=== PATIENT | female | born 1955 | race Caucasian/White ===

== ENCOUNTER 2019-01-22 23:59 | Observation (INO) ==
[2019-01-23] MEDS ORDERED: SODIUM CHLORIDE 0.9% 1000ML 1,000 ML IV ONE (00:25)
[2019-01-23] MEDS ORDERED: METOPROLOL TARTRATE 1 MG/ML VIAL IV STA ×2 (00:25→02:12)
[2019-01-23 00:44] LABS: Basophils # (auto) 0.06 K/uL (0-0.2); Eosinophils # (auto) 0.54 K/uL (0-0.5); Eosinophils % (auto) 8.8 %; Hematocrit (blood only) 39.3 % (37-47); Hemoglobin 13.6 g/dL (12.0-16.0); Immature Granulocytes # (auto) 0.01 K/uL (0.00-0.02); Immature Granulocytes % (auto) 0.2 %; Lymphocytes # (auto) 2.91 K/uL (1.2-3.4); Lymphocytes % (auto) 47.4 %; Mean Corpuscular Hgb Conc 34.6 g/dL (32-36); Mean Corpuscular Volume 90.1 fL (80-100); Mean Platelet Volume 9.9 fL (7.4-10.4); Monocytes # (auto) 0.59 K/uL (0.11-0.59); Monocytes % (auto) 9.6 %; Neutrophils # (auto) 2.03 K/uL (1.4-6.5); Platelet Count 318 K/uL (130-400); RDW Coefficient of Variation 12.4 % (11.5-14.5); Red Blood Count 4.36 M/uL (4.2-5.4); White Blood Count 6.14 K/uL (4.8-10.8)
[2019-01-23 00:56] LABS: Partial Thromboplastin Ratio 1.1; Partial Thromboplastin Time 29.1 Seconds (21.0-31.0); Prothrombin Time 10.3 Seconds (9.0-12.0)
[2019-01-23 01:03] LABS: Alanine Aminotransferase 24 U/L (12-78); Aspartate Aminotransferase 18 U/L (15-37); Bilirubin Direct < 0.1 mg/dl (0-0.2); Blood Urea Nitrogen 15 mg/dl (7-18); Calcium 8.9 mg/dl (8.5-10.1); Carbon Dioxide 25 mmol/L (21-32); Chloride 108 mmol/L (98-107); Creatinine Clr Calc Pharmacy 82.6 ml/min; Est GFR (African American) 106.1; Est GFR (Non-African American) 91.6; Glucose 98 mg/dl (70-99); Magnesium 2.4 mg/dl (1.8-2.4); Potassium 3.5 mmol/L (3.5-5.1); Sodium 140 mmol/L (136-145)
[2019-01-23 01:14] LABS: Alkaline Phosphatase 83 U/L (45-117); Bilirubin,Total 0.2 mg/dl (0.2-1); Total Protein 8.3 gm/dl (6.4-8.2); Troponin I < 0.015 ng/ml (0-0.045)
[2019-01-23] MEDS ORDERED: SODIUM CHLORIDE 0.9% 1000ML 1,000 ML IV SCH (02:15)
[2019-01-23] MEDS ORDERED: POTASSIUM CHLORIDE 20 MEQ TABCR PO STA (03:03)
--- NOTE | 2019-01-23 03:04 | History & Physical Report ---
Date of Service January 23, 2019 Assessment & Plan (1) Paroxysmal atrial fibrillation with RVR: Paroxysmal A-fib with RVR/Palpitations-- The patient will be admitted to telemetry for serial cardiac enzymes, serial EKG's, cardiac rhythm monitoring and a 2-D echocardiogram with Dopplers. She has already stated that she does not want to be on medications. I discussed with her that she would likely be recommended to start a baby aspirin 81 mg daily for stroke prophylaxis, but she preferred not to at this time. She has received 2 doses of Lopressor 5 mg IV while in the ED. Give Klor-Con 40 mEq p.o. x1 now, for a potassium level of 3.5. We will have Lopressor 5 mg IV every 4 hours as needed heart rate greater than [address] Fay, who was contacted by Dr. Dye from the ED. Present on Admission?: Yes (2) Palpitations: see above. Present on Admission?: Yes History of Present Illness Chief Complaint: The patient presents to the ED with complaint of acute onset of irregular fast heart beat a few hours prior to arrival Primary Care Provider: Cody Sandhu MD The patient is a 63 yo female who initially noted an irregular heart beat of about 2 minutes duration 3 months ago. Since that time, she has occasionally noted a flutterng sensation in her neck, but has always checked her pulse and found it to be regular. Tonite, she noted the acute onset of palpitations, felt the pulsation in her neck, and felt her pulse to be irregular and fast, and presented to the ED for assessment. In the ED, she was found to be in A-fib with RVR, was given lopressor 5mg IV x 2 with improved rate control, and was referred for admission. Allergies Allergy/AdvReac Type Severity Reaction Status Date / Time No Known Allergies Allergy Verified 01/23/19 02:12 Home Medications Home Medications Medication Instructions Recorded Confirmed Type multivitamin tablet 1 tab PO DAILY 12/26/18 01/23/19 History Past Med/Surg History Medical History Aortic dissection (Chronic) Surgical History History of neck surgery (Resolved) Social History marital status: Feels Safe at Home: Yes Smoking Status: Never smoker Hx Alcohol Use: Yes Hx Substance Use: No Review of Systems Review of Systems: The patient denies chest pain, shortness of breath, dyspnea on exertion, cough, lower extremity swelling, sore throat, fevers, chills, sweats, weight change, fatigue, nausea, vomiting, diarrhea , constipation, abdominal pain, pelvic pain, blood in urine or stool, dysuria, urinary frequency or urgency, lightheadedness, dizziness, headache, memory loss, loss of consciousness, rash, abnormal bruising or bleeding, imbalance, focal or generalized weakness, numbness or tingling in arms or legs, generalized arthralgias or myalgias, back or neck pain, or night sweats. The review of systems is otherwise negative other than for that already noted above, and at least 10 systems have been reviewed. Physical Exam Physical Exam: The patient is awake, alert and oriented 3, well developed and well nourished, normocephalic and atraumatic, lying in bed and in no acute distress. HEENT--PERRL, EOMI, mucous membranes and oropharynx dry. Neck--supple. No JVD. No bruits. Thyroid normal, trachea midline, no adenopathy. Heart--irregularly irregular, rate controlled. No murmurs, rubs or gallops. Lungs--clear bilaterally, no respiratory distress, no accessory muscle use. Abdomen--normal bowel sounds and soft. Nontender. Nondistended, no hernias or masses, no organomegaly. Extremities--no cyanosis or clubbing. No edema. There are good distal pulses b/l. Dermatologic--normal skin turgor, normal color, no abnormal lymph nodes, no rash. Neurologic--cranial nerves II through XII grossly intact. Rheumatologic--normal range of motion. Psychiatric--normal affect. Results & Data Vital Signs (Past 12 Hours) Vital Signs Temp Pulse Pulse Resp BP BP Pulse Ox 01/23/19 02:17 95 H 128/96 01/23/19 01:47 87 18 127/94 96 01/23/19 00:39 116 H 20 154/104 H 95 01/23/19 00:38 107 H 154/104 H 01/23/19 00:17 122 H 30 H 158/102 H 01/23/19 00:03 97.5 F L 120 H 20 185/89 H 97 Laboratory Results Laboratory Results WBC 6.14 K/uL (4.8-10.8) 01/23/19 00: RBC 4.36 M/uL (4.2-5.4) 01/23/19 00: Hgb 13.6 g/dL (12.0-16.0) 01/23/19 00: Hct 39.3 % (37-47) 01/23/19 00: MCV 90.1 fL (80-100) 01/23/19: MCH 31.2 pg (25-34) 01/23/19: MCHC 34.6 g/dL (32-36) 01/23/19 00: RDW Std Deviation 41.0 fL (36.4-46.3) 01/23/19 00: RDW Coeff of Chaparro 12.4 % (11.5-14.5) 01/23/19 00: Plt Count 318 K/uL (130-400) 01/23/19 00: MPV 9.9 fL (7.4-10.4) 01/23/19 00: Immature Gran % (Auto) 0.2 % 01/23/19 00: Neut % (Auto) 33.0 % 01/23/19 00: Lymph % (Auto) 47.4 % 01/23/19 00: Wells % (Auto) 9.6 % 01/23/19 00: Eos % (Auto) 8.8 % 01/23/19 00: Baso % (Auto) 1.0 % 01/23/19 00:28 Immature Gran # (Auto) 0.01 K/uL (0.00-0.02) 01/23/19 00:28 Neut # (Auto) 2.03 K/uL (1.4-6.5) 01/23/19 00: Lymph # (Auto) 2.91 K/uL (1.2-3.4) 01/23/19 00: Wells # (Auto) 0.59 K/uL (0.11-0.59) 01/23/19 00: Eos # (Auto) 0.54 K/uL (0-0.5) H 01/23/19 00:28 Baso # (Auto) 0.06 K/uL (0-0.2) 01/23/19: PT 10.3 Seconds (9.0-12.0) 01/23/19: INR 1.0 (0.9-1.1) 01/23/19: APTT 29.1 Seconds (21.0-31.0) 01/23/19 PTT Ratio 1.1 01/23/19: Sodium 140 mmol/L (136-145) 01/23/19: Potassium 3.5 mmol/L (3.5-5.1) 01/23/19 Chloride 108 mmol/L (98-107) H 01/23/19: Carbon Dioxide 25 mmol/L (21-32) 01/23/19: Anion Gap 7.0 (3-11) 01/23/19: BUN 15 mg/dl (7-18) 01/23/19: Creatinine 0.70 mg/dl (0.6-1.2) 01/23/19: Est Cr Clr Drug Dosing 82.6 ml/min 01/23/19: Est GFR ( Amer) 106.1 01/23/19: Est GFR (Non-Af Amer) 91.6 01/23/19: BUN/Creatinine Ratio 22.0 (10-20) H 01/23/19: Glucose 98 mg/dl (70-99) 01/23/19 Calcium 8.9 mg/dl (8.5-10.1) 01/23/19: Magnesium 2.4 mg/dl (1.8-2.4) 01/23/19 Total Bilirubin 0.2 mg/dl (0.2-1) 01/23/19 Direct Bilirubin < 0.1 mg/dl (0-0.2) 01/23/19: AST 18 U/L (15-37) 01/23/19: ALT 24 U/L (12-78) 01/23/19: Alkaline Phosphatase 83 U/L (45-117) 01/23/19 00:28 Troponin I < 0.015 ng/ml (0-0.045) 01/23/19 00:28 Total Protein 8.3 gm/dl (6.4-8.2) H 01/23/19 00:28 Albumin 4.0 gm/dl (3.4-5.0) 01/23/19 00:28 TSH 2.220 uIu/ml (0.300-4.500) 01/23/19 00:28 Ethyl Alcohol mg/dL 38.9 mg/dl (0-3) H 01/23/19 00:28 Code Status & VTE Plan Code Status full code VTE Prophylaxis Plan VTE Prophylaxis will be ordered: Yes PG Care Time/CCT Total # of Minutes Spent Total Time Spent with Patient: Total time spent is greater than 50% in coordination of care (as documented) at patient's floor/unit and/or counseling patient:
[2019-01-23] MEDS ORDERED: METOPROLOL TARTRATE 1 MG/ML VIAL IV PRN (03:58)
[2019-01-23] MEDS ORDERED: ACETAMINOPHEN 325 MG TAB PO PRN (04:11)
[2019-01-23] MEDS ORDERED: MAGNESIUM HYDROXIDE SUSP 30 ML UDC PO PRN (04:11)
[2019-01-23] MEDS ORDERED: ACETAMINOPHEN 1000 MG/100 ML IV IV PRN (04:11)
[2019-01-23] MEDS ORDERED: ALUMINUM/MAGNESIUM SUSP 30 ML UDC PO PRN (04:11)
--- NOTE | 2019-01-23 06:25 | Emergency Department Note ---
Entered by Jamee Gibbs acting as a scribe for Kai Dye MD ED Provider Note Name: Celeste Brady Age: 63 F Arrives Via: personal vehicle Informant: patient, CC: Palpitations HPI: The patient is a 63 y./o female who presents to the emergency department for a constant irregular heart beat that began prior to arrival. The patient states that she was with a friend had a drink and when she went to leave she began having heart palpitations. She states that it feels like her heart is beating irregularly. The patient notes that she was in the hospital in [place] in October for abdominal pain that was found to be an aortic dissection for which she has follow up appointment for to monitor. The patient denies chest pain, syncope, lightheaded, headache, trouble breathing, nausea, vomiting, abdominal pain, and urinary burning. She notes she does not take any medication, has no allergies, and does not have a history of heart issues. No medications taken prior to arrival. Nothing makes better nor worse. Patient notes that over last month or so periodically noting some heart racing which resolves quickly on its own until tonight. ROS: See above HPI for pertinent positives & negatives. A total of 10 systems reviewed and were otherwise negative. Past Medical History: Aortic dissection Past Surgical History: History of neck surgery. Family History: Noncontributory. Social History: Never smoked Home Medications: No medication Allergies No allergies Physical: Vitals: BP 185/89, HR 120, RESP 20, TEMP 97.5, O2 97. Exam: GENERAL: Patient is mildly anxious appearing and in no acute distress. Smelled mildly of alcohol. EYES: No scleral icterus, unremarkable pupils. ENT: Mucous membranes moist, no nasal congestion. NECK: No masses appreciated, no meningismus, trachea is midline. RESPIRATORY: No dyspnea. Clear to auscultation and equal bilaterally. No wheeze, no rhonchi. CARDIOVASCULAR: Tachycardic rate and irregular rhythm. No murmurs, rubs, gallops appreciated. GASTROINTESTINAL: Abdomen soft, non-tender, no peritonitis. Bowel sounds positive. No masses appreciated. BACK: No midline tenderness, no CVA tenderness EXTREMITIES: Normal motion all extremities, no cyanosis, no edema. NEUROLOGIC: Alert and oriented, no acute motor or sensory deficits, no focal weakness, cranial nerves grossly intact. SKIN: No rash, no jaundice, no diaphoresis. ED Course: Prior Medical Record, Triage/Nursing Notes, Medications, Allergies reviewed by Me Vital Signs: reviewed and remarkable for Tachy/HTN Labs: Reviewed and remarkable for wnl Interventions: Saline lock, lopressor 5mg IV x 2, NSS bolus 1 L IV x 2 Imaging: X ray results are stated below per my interpretation: Chest: 1 view: No infiltrate, no effusion, normal cardiac border. EKG: Per My interpretation: Afib RVR no ischemia. Consults: 0209: I spoke with Dr. Kelly ROSE Cardiology, if continued symptoms it would be best to bring her in for further rate control and management. 0240: I spoke with Dr. Littlejohn hospitalist, he will evaluate the patient for further management. Reassessments/Times: 0015: The patient was evaluated in room C07. A complete history and physical exam was performed. 0105: I checked on the patient she is feeling better with her heart rate in the 90 but is still irregular. She notes she had a similar episode a few months ago which resolved on its own. 0205: I reevaluated the patient, her heart rate is irregular still but in the 80s. 0209: I spoke with Dr. Kelly ROSE Cardiology, if continued symptoms it would be best to bring her in for further rate control and management. Suggests holding an anti-colligation for the moment. 0240: I spoke with Dr. Littlejohn hospitalist, he will evaluate the patient for further management. Blood pressure: Elevated - Referred to Hospitalist Disposition: Hospitalization Differentials: premature contractions, electrolyte abnormality, cardiac dys rhythmia, thyroid dysfunction, pulmonary embolism, infection, gastrointestinal, amongst other pathologies. Medical Decision Makin yr old female with afib RVR on arrival as likely cause of her symptomatic Palpitations. HR improving with lopressor/fluids though still somewhat symptomatic. Reviewed with Cards and with persistent symptoms not unreasonable to bring in for further management/obs. Labs looking OK with mild hypoK. No evidence of PE and she has no pain thus I feel CTA not indicated for PE nor dissection eval. Impression: Paroxysmal Atiral Fibrillation with RVR The scribe's documentation has been prepared under my direction and personally reviewed by me in its entirety. I confirm that the note above accurately reflects all work, treatment, procedures, and medical decision making performed by me. Kai Dye MD Impression & Plan Paroxysmal atrial fibrillation with RVR Past Med/Surg History Medical History Aortic dissection (Chronic) Surgical History History of neck surgery (Resolved) Social History Beliefs That Will Affect Care: None marital status: Current Living Situation: Spouse Feels Safe at Home: Yes Smoking Status: Never smoker Hx Alcohol Use: Yes Alcohol type: wine Hx Substance Use: No Results & Data Vital Signs Vital Signs - 24 hr 01/23/19 00:03 01/23/19 00:17 01/23/19 00:35 Temperature 36.4 C L Temperature Source Oral Sepsis Recent Fever Within 48 Hours No Sepsis Action Taken by Nursing No Action Required Pulse Rate 120 H 122 H Pulse Rate [Finger] Respiratory Rate 20 30 H Respiratory Effort / Characteristics Non-Labored Spontaneous Respiratory Depth Normal Blood Pressure 185/89 H 158/102 H Blood Pressure [Left Arm] Blood Pressure Mean 121 120 Blood Pressure Mean [Left Arm] Blood Pressure Position Sitting Pulse Oximetry 97 Oxygen Delivery Method Room Air Room Air Fraction of Inspired Oxygen 96 01/23/19 00:38 01/23/19 00:39 01/23/19 01:47 Temperature Temperature Source Sepsis Recent Fever Within 48 Hours Sepsis Action Taken by Nursing Pulse Rate 107 H Pulse Rate [Finger] 116 H 87 Respiratory Rate 20 18 Respiratory Effort / Characteristics Respiratory Depth Blood Pressure 154/104 H Blood Pressure [Left Arm] 154/104 H 127/94 Blood Pressure Mean Blood Pressure Mean [Left Arm] 120 105 Blood Pressure Position Pulse Oximetry 95 96 Oxygen Delivery Method Room Air Room Air Fraction of Inspired Oxygen 01/23/19 02:17 Temperature Temperature Source Sepsis Recent Fever Within 48 Hours Sepsis Action Taken by Nursing Pulse Rate 95 H Pulse Rate [Finger] Respiratory Rate Respiratory Effort / Characteristics Respiratory Depth Blood Pressure 128/96 Blood Pressure [Left Arm] Blood Pressure Mean Blood Pressure Mean [Left Arm] Blood Pressure Position Pulse Oximetry Oxygen Delivery Method Fraction of Inspired Oxygen Home Medications Current Medication List: was personally reviewed by me Laboratory Data Attestation: I reviewed the patient's lab results. Result diagrams: 01/23/19 00:28 01/23/19 00:28 Lab Results 01/23/19 01/23/19 01/23/19 Range/Units 00:28 00:28 00:28 WBC 6.14 (4.8-10.8) K/uL RBC 4.36 (4.2-5.4) M/uL Hgb 13.6 (12.0-16.0) g/dL Hct 39.3 (37-47) % MCV 90.1 (80-100) fL MCH 31.2 (25-34) pg MCHC 34.6 (32-36) g/dL RDW Std Deviation 41.0 (36.4-46.3) fL RDW Coeff of Chaparro 12.4 (11.5-14.5) % Plt Count 318 (130-400) K/uL MPV 9.9 (7.4-10.4) fL Immature Gran % (Auto) 0.2 % Neut % (Auto) 33.0 % Lymph % (Auto) 47.4 % Winn % (Auto) 9.6 % Eos % (Auto) 8.8 % Baso % (Auto) 1.0 % Immature Gran # (Auto) 0.01 (0.00-0.02) K/uL Neut # (Auto) 2.03 (1.4-6.5) K/uL Lymph # (Auto) 2.91 (1.2-3.4) K/uL Winn # (Auto) 0.59 (0.11-0.59) K/uL Eos # (Auto) 0.54 H (0-0.5) K/uL Baso # (Auto) 0.06 (0-0.2) K/uL PT 10.3 (9.0-12.0) Seconds INR 1.0 (0.9-1.1) APTT 29.1 (21.0-31.0) Seconds PTT Ratio 1.1 Sodium 140 (136-145) mmol/L Potassium 3.5 (3.5-5.1) mmol/L Chloride 108 H (98-107) mmol/L Carbon Dioxide 25 (21-32) mmol/L Anion Gap 7.0 (3-11) BUN 15 (7-18) mg/dl Creatinine 0.70 (0.6-1.2) mg/dl Est Cr Clr Drug Dosing 82.6 ml/min Est GFR ( Amer) 106.1 Est GFR (Non-Af Amer) 91.6 BUN/Creatinine Ratio 22.0 H (10-20) Glucose 98 (70-99) mg/dl Calcium 8.9 (8.5-10.1) mg/dl Magnesium 2.4 (1.8-2.4) mg/dl Total Bilirubin 0.2 (0.2-1) mg/dl Direct Bilirubin < 0.1 (0-0.2) mg/dl AST 18 (15-37) U/L ALT 24 (12-78) U/L Alkaline Phosphatase 83 (45-117) U/L Troponin I < 0.015 (0-0.045) ng/ml Total Protein 8.3 H (6.4-8.2) gm/dl Albumin 4.0 (3.4-5.0) gm/dl TSH 2.220 (0.300-4.500) uIu/ml Ethyl Alcohol mg/dL (0-3) mg/dl 01/23/19 Range/Units 00:28 WBC (4.8-10.8) K/uL RBC (4.2-5.4) M/uL Hgb (12.0-16.0) g/dL Hct (37-47) % MCV (80-100) fL MCH (25-34) pg MCHC (32-36) g/dL RDW Std Deviation (36.4-46.3) fL RDW Coeff of Chaparro (11.5-14.5) % Plt Count (130-400) K/uL MPV (7.4-10.4) fL Immature Gran % (Auto) % Neut % (Auto) % Lymph % (Auto) % Winn % (Auto) % Eos % (Auto) % Baso % (Auto) % Immature Gran # (Auto) (0.00-0.02) K/uL Neut # (Auto) (1.4-6.5) K/uL Lymph # (Auto) (1.2-3.4) K/uL Winn # (Auto) (0.11-0.59) K/uL Eos # (Auto) (0-0.5) K/uL Baso # (Auto) (0-0.2) K/uL PT (9.0-12.0) Seconds INR (0.9-1.1) APTT (21.0-31.0) Seconds PTT Ratio Sodium (136-145) mmol/L Potassium (3.5-5.1) mmol/L Chloride (98-107) mmol/L Carbon Dioxide (21-32) mmol/L Anion Gap (3-11) BUN (7-18) mg/dl Creatinine (0.6-1.2) mg/dl Est Cr Clr Drug Dosing ml/min Est GFR ( Amer) Est GFR (Non-Af Amer) BUN/Creatinine Ratio (10-20) Glucose (70-99) mg/dl Calcium (8.5-10.1) mg/dl Magnesium (1.8-2.4) mg/dl Total Bilirubin (0.2-1) mg/dl Direct Bilirubin (0-0.2) mg/dl AST (15-37) U/L ALT (12-78) U/L Alkaline Phosphatase (45-117) U/L Troponin I (0-0.045) ng/ml Total Protein (6.4-8.2) gm/dl Albumin (3.4-5.0) gm/dl TSH (0.300-4.500) uIu/ml Ethyl Alcohol mg/dL 38.9 H (0-3) mg/dl Administered Medications Discontinued Medications Sodium Chloride (Nss 1000ml) 1,000 mls @ 999 mls/hr IV .Q1H1M ONE Stop: 01/23/19 01:25 Last Infusion: 01/23/19 01:36 Dose: 0 mls/hr Documented by: [id number] Admin: 01/23/19 00:35 Dose: 999 mls/hr Documented by: [id number] Sodium Chloride (Nss 1000ml) 1,000 mls @ 125 mls/hr IV .Q8H RACHEL Stop: 02/22/19 02:14 Last Infusion: 01/23/19 04:13 Dose: 0 mls/hr Documented by: [id number] Admin: 01/23/19 02:16 Dose: 125 mls/hr Documented by: [id number] Metoprolol Tartrate (Lopressor) 5 mg IV NOW STA Stop: 01/23/19 00:26 Last Admin: 01/23/19 00:38 Dose: 5 mg Documented by: [id number] Metoprolol Tartrate (Lopressor) 5 mg IV NOW STA Stop: 01/23/19 02:13 Last Admin: 01/23/19 02:17 Dose: 5 mg Documented by: [id number] Potassium Chloride (Klor-Con M20) 40 meq PO NOW STA Stop: 01/23/19 03:04 Last Admin: 01/23/19 03:15 Dose: 40 meq Documented by: [id number] Blood Pressure Blood Pressure Findings: Normal blood pressure Discharge Plan Visit Data *Final* Discharge Date/Time: 01/23/19 03:50 Chief Complaint: Cardiac Assessment Stated Complaint: IRREGULAR HEARTBEAT ED Provider: Kai Dye Discharge Problem: Paroxysmal atrial fibrillation with RVR Patient Disposition: Admitted As Inpatient Discharge Instructions Interventions: ED Discharge Assessment Last Done: 01/23/19 03:50 The scribe's documentation has been prepared under my direction and personally reviewed by me in its entirety. I confirm that the note above accurately reflects all work, treatment, procedures, and medical decision making performed by me.
--- NOTE | 2019-01-23 06:26 | XRay Report ---
XR chest 1V portable CLINICAL HISTORY: Atrial fibrillation with a rapid ventricular response COMPARISON STUDY: No previous studies for comparison. FINDINGS: The cardiac and mediastinal contours are normal. There is no evidence of focal pulmonary co nsolidation. There is no evidence of failure. No pleural effusions are visualized.[ IMPRESSION: No active disease in the chest. Electronically signed by: Juan Ramon Mancilla M.D. 01/23/2019 6:25 AM
[2019-01-23] MEDS ORDERED: MULTIVITAMIN TAB PO SCH (09:00)
--- NOTE | 2019-01-23 10:32 | Cardiology Consultation ---
Date of Consultation January 23, 2019 Assessment & Plan (1) Paroxysmal atrial fibrillation with RVR: The patient is willing to take metoprolol succinate and Xarelto for 1 month. She would not like to use the medications p.r.n.. As her atrial fibrillation is quite symptomatic, we may opt for that strategy at her follow-up visit. Patient is very reluctant to take long-term medications. (2) Aortic dissection: A small infrarenal abdominal aortic dissection was noted on a CT scan done in October 2018. We have discussed importance of long-term antihypertensive medications. History of Present Illness Attending Physician: Mathew Ernst DO History of Present Illness Mrs. Brady is a 63-year-old female admitted earlier today for atrial fibrillation and a rapid ventricular response. This consultation was ordered to assist in her management. The patient was in her usual state of health until approximately 11 p.m. last evening. After walking a friend to her car, she had the abrupt onset of palpitations located in the upper chest anterior neck area. She checked her pulse and noted to be irregular and rapid at approximately 130 beats per minute. The patient presented to the emergency room for further care. On arrival here, she was noted to be in atrial fibrillation with a rapid ventricular response. The patient's heart rate improved after administering intravenous metoprolol. The patient had a similar episode approximately 3 months ago, however, that only lasted for several minutes. 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 She has never experienced exertional chest pain or limiting dyspnea. She further denies syncope, presyncope, PND, orthopnea, lower extremity edema, and claudication. We have had a long discussion regarding the management of paroxysmal atrial fibrillation. The patient is very reluctant to take any medications. She agrees to 1 month of an anticoagulant and a beta-cj. She would like to meet in the outpatient setting to discuss further management. The patient was seen in an emergency room in [facility] on November 08, 2018 for abdominal discomfort. She was diagnosed with an infrarenal abdominal aortic dissection extending 2.8 centimeters in terminating just proximal to the aortic bifurcation. She was started on antihypertensive medications at that time, however, she discontinue them because of side effects. Currently, patient is resting comfortably in bed, but noticing some palpitations. Past medical history 1. Paroxysmal atrial fibrillation 2. Abdominal aortic dissection-see above 3. Cervical DJD 4. Lumbar disc disease 5. Chronic sinusitis Social history and lives with her No tobacco Social alcohol Family history Mother at 81 from unknown causes Father at 70 from an [place] Review of systems A 10 point review of systems was undertaken and negative except for that described above. Allergies Allergy/AdvReac Type Severity Reaction Status Date / Time No Known Allergies Allergy Verified 01/23/19 02:12 Home Medications Home Medications Medication Instructions Recorded Confirmed Type multivitamin tablet 1 tab PO DAILY 12/26/18 01/23/19 History metoprolol succinate 25 mg PO QAM 30 Days #30 tab 01/23/19 Rx rivaroxaban [Xarelto] 20 mg PO DAILY 30 Days #30 tab 01/23/19 Rx Patient History Medical History Aortic dissection (Chronic) Surgical History History of neck surgery (Resolved) Social History Beliefs That Will Affect Care: None marital status: Current Living Situation: Spouse Feels Safe at Home: Yes Smoking Status: Never smoker Hx Alcohol Use: Yes Alcohol type: wine Hx Substance Use: No Physical Exam Physical Exam: In general this is a well-developed well-nourished white female in no acute distress. HEENT exam is negative. Neck is supple with full carotid upstrokes. There are no carotid bruits. Jugular venous pressure is flat at 90. There is no thyromegaly. Cardiovascular exam reveals an irregularly irregular rhythm. No murmurs or S3 noted. Lungs are clear without rales, rhonchi, wheezes. Abdomen is soft and nontender without bruits. Extremities reveal intact radial artery and posterior tibial pulses bilaterally. There is no peripheral edema. Results & Data Vital Signs (Past 12 Hours) Vital Signs Temp Pulse Pulse Resp BP BP Pulse Ox 01/23/19 08:51 125 H 158/90 H 01/23/19 08:00 108 H 01/23/19 07:25 36.7 C 74 16 140/74 97 01/23/19 04:23 105 H 01/23/19 04:11 01/23/19 04:00 36.4 C L 111 H 18 174/100 H 97 01/23/19 03:32 36.6 C 91 H 18 130/90 96 01/23/19 02:17 95 H 128/96 01/23/19 01:47 87 18 127/94 96 01/23/19 00:39 116 H 20 154/104 H 95 01/23/19 00:38 107 H 154/104 H 01/23/19 00:17 122 H 30 H 158/102 H 01/23/19 00:03 36.4 C L 120 H 20 185/89 H 97 Pulse Ox 01/23/19 08:51 01/23/19 08:00 01/23/19 07:25 01/23/19 04:23 01/23/19 04:11 97 01/23/19 04:00 01/23/19 03:32 01/23/19 02:17 01/23/19 01:47 01/23/19 00:39 01/23/19 00:38 01/23/19 00:17 01/23/19 00:03 Laboratory Results CBC notes hemoglobin 13.6, hematocrit 39.3, white count 6.1, and a platelet count of [id number]. Electrolytes notice sodium 140, potassium 3.5, chloride 108, bicarb 25, BUN 15, creatinine 0.7, glucose of 98. Magnesium level is normal at 2.4. Two troponin I levels are undetectable less than 0.015. TSH is normal 2.22. Diagnostic Findings EKG notes atrial fibrillation with a rapid ventricular response. There is an incomplete right bundle-branch block and nonspecific ST T wave abnormality. Chest x-ray shows no acute disease.
[2019-01-23] MEDS ORDERED: METOPROLOL SUCC 25MG EXT REL TAB PO SCH (11:00)
[2019-01-23] MEDS ORDERED: RIVAROXABAN 20 MG TAB PO SCH (11:00)
--- NOTE | 2019-01-23 11:34 | Discharge Summary ---
Date of Service January 23, 2019 Admission HPI Per Admitting Provider The patient is a 63 yo female who initially noted an irregular heart beat of about 2 minutes duration 3 months ago. Since that time, she has occasionally noted a flutterng sensation in her neck, but has always checked her pulse and found it to be regular. [place], she noted the acute onset of palpitations, felt the pulsation in her neck, and felt her pulse to be irregular and fast, and presented to the ED for assessment. In the ED, she was found to be in A-fib with RVR, was given lopressor 5mg IV x 2 with improved rate control, and was referred for admission. Admission Exam Per Admitting Provider The patient is awake, alert and oriented 3, well developed and well nourished, normocephalic and atraumatic, lying in bed and in no acute distress. HEENT--PERRL, EOMI, mucous membranes and oropharynx dry. Neck--supple. No JVD. No bruits. Thyroid normal, trachea midline, no adenopathy. Heart--irregularly irregular, rate controlled. No murmurs, rubs or gallops. Lungs--clear bilaterally, no respiratory distress, no accessory muscle use. Abdomen--normal bowel sounds and soft. Nontender. Nondistended, no hernias or masses, no organomegaly. Extremities--no cyanosis or clubbing. No edema. There are good distal pulses b/l. Dermatologic--normal skin turgor, normal color, no abnormal lymph nodes, no rash. Neurologic--cranial nerves II through XII grossly intact. Rheumatologic--normal range of motion. Psychiatric--normal affect. Principal Diagnosis Paroxysmal atrial fibrillation Discharge Exam Constitutional WD/WN, vitals as above Eyes PERRL, conjunctivae normal, anicteric sclerae ENMT external ear and nose normal, oropharynx normal Neck trachea midline, no thyromegaly Respiratory normal respiratory effort, lungs clear to auscultation Cardiovascular Rate/Rhythm: + tachycardic and + irregularly irregular Heart Sounds: normal S1 and normal S2; no murmur Vessels: no JVD Extremities: normal capillary refill; no edema Gastrointestinal (Abdomen) normal bowel sounds, soft, nontender, no hepatosplenomegaly Musculoskeletal no cyanosis or clubbing, extremities motor strength 5/5 Skin no rashes, warm and dry Neurologic patellar DTR's 2+ bilat, sensation intact and PERRL, EOMI, accommodation nl, no face palsy, no dysarthria Psychiatric A+Ox3, euthymic affect Lymphatic no cervical or axillary lymphadenopathy Discharge Data Allergies Allergy/AdvReac Type Severity Reaction Status Date / Time No Known Allergies Allergy Verified 01/23/19 02:12 Consultations 01/23/19 02:12 Consult Cardiology Stat ED Decision to Admit Stat 01/23/19 04:11 Consult Case Management - Discharge Planning Routine Hospital Course (1) Paroxysmal atrial fibrillation with RVR: patient admits to intermittent symptoms for a few weeks on the monitor her HR ranges 100-120's discussed [address] Dr. Seay, plan is to try medications for one month the patient prides herself on eating well and getting exercise she is very resistant to the idea of taking anything on a regular basis discussed a simple plan of taking Toprol 25mg daily and Xarelto 20mg daily to promote compliance discussed possible adverse effects of both medications so she is aware she will take these medications for a month and follow up with Dr. Seay echocardiogram was performed, results still pending but will be read by Dr. Seay (2) Palpitations: due to paroxysmal afib (3) Elevated blood pressure reading: blood pressure elevated at times while here her says they check at home and it is always good starting on Toprol 25mg daily for her HR, will help with BP no diagnosis of HTN at this point, would need to follow up in office for BP readings Total Time Total Time Spent Total Time Spent (In Minutes): 32 minutes Total Time Includes: Examination of the Patient, Discharge Planning, Medication Reconciliation, Communication With Other Providers (Dr. Seay) and Other (long discussion with patient and her at the bedside) Discharge Plan Discharge Items Patient Disposition: Home - Self-Care Reason For Visit: ATRIAL FIB WITH RVR Discharge Diagnosis: Paroxysmal atrial fibrillation Condition: Good Discharge Goals: Improve disease control and Improve function Activity: Resume your previous activity Non-emergency contact: Primary Care Provider and [facility] Call non-emergency contact if: you have any medication questions and your symptoms worsen Follow-up/Referrals: Cody Sandhu MD [Primary Care Provider] - Diet: Regular Addtl Provider Instructions: Medications: - XARELTO: 20mg daily for the next month - TOPROL: 25mg daily for the next month Paroxysmal atrial fibrillation rates are between 100-120's as discussed with Dr. Seay, he would like you to take Toprol and Xarelto for the next month and see him in the office he would likely transition you to having medications to take as needed but he wants you to try daily medications for a month to see how you tolerate them FOLLOW UP - Dr. Seay, cardiology office in one month, call [phone] Prescriptions: New metoprolol succinate 25 mg Tablet Extended Release 24 Hr 25 mg PO QAM 30 Days Qty: 30 RF: 0 Xarelto 20 mg Tablet 20 mg PO DAILY 30 Days Qty: 30 RF: 0 Continued multivitamin tablet 1 tab PO DAILY RF: 0 Stand-Alone Forms: [facility] Discharge Orders: Discharge Order (Routine); Ordered 01/23/19 Ordered By: Mathew Ernst Admission Data Admit Date/Time: 01/23/19 03:02 Attending Provider: Mathew Ernst Admit Provider: Jonnathan Horner Primary Care Provider: Cody Sandhu Other Providers: Steve Fay ; Jonnathan Horner Service: Telemetry
== END 2019-01-23 12:30 | disposition home or self-care (01) ==
LOC: 2S 23:59 → ED 23:59 → SUATTDRO 01-23 03:02 → 2S 01-23 03:50
DX: R03.0 Elevated blood-pressure reading, without diagnosis of hypertension; I48.0 Paroxysmal atrial fibrillation; Z79.899 Other long term (current) drug therapy; I71.02 Dissection of abdominal aorta